=== PATIENT | female | born 1935 | race Caucasian/White ===

== ENCOUNTER 2019-03-15 11:39 | Emergency (ER) | payer MEDICARE, OTHER ==
[~2019-03-15] VITALS: Ht 149.9 cm; Wt 61.5 kg
[2019-03-15] MEDS ORDERED: LISI10TA4 PO (12:39)
[2019-03-15] MEDS ORDERED: DONE10TA90 PO (12:39)
[2019-03-15] MEDS ORDERED: METO1TAB33 PO (12:39)
[2019-03-15 12:42] LABS: BASO # 0.1 10^3/uL (0.0-0.2); BASO % 0.6 % (0.0-1.0); EOS # 0.1 10^3/uL (0.0-0.50); EOS % 1.2 % (0.0-3.0); HEMATOCRIT 35.2 % (36.0-47.0); HEMOGLOBIN 11.6 g/dl (12.0-15.5); LYMPH # 1.8 10^3/uL (1.5-4.5); LYMPH % 16.3 % (24.0-44.0); MEAN CORPUSCULAR HEMOGLOBIN 32.2 pg (27.0-33.0); MEAN CORPUSCULAR VOLUME 97.8 fl (80.0-96.0); MONO # 1.3 10^3/uL (0.0-0.8); MONO % 11.6 % (0.0-5.0); NEUTROPHILS # 7.5 10^3/uL (1.8-7.7); NEUTROPHILS % 69.6 % (36.0-66.0); PLATELET COUNT, AUTOMATED 257 10^3/uL (150-450); WHITE BLOOD COUNT 10.8 10^3/uL (4.0-10.0)
[2019-03-15 13:08] LABS: ALBUMIN 2.9 GM/DL (3.2-5.2); BILIRUBIN,DIRECT 0.1 MG/DL (0.0-0.2); BILIRUBIN,TOTAL 0.5 MG/DL (0.2-1.0); TOTAL PROTEIN 7.6 GM/DL (6.4-8.2)
[2019-03-15] MEDS ORDERED: ISOVUE-370 76% 100ML VIAL (Q9967) As Ordered ONE (13:11)
[2019-03-15 14:35] LABS: INR 1.13; PARTIAL THROMBOPLASTIN TIME 31.5 SECONDS (25.4-37.6); PROTHROMBIN TIME 14.7 SECONDS (12.1-14.4)
--- NOTE | 2019-03-15 15:39 | REP ---
CT ABDOMEN AND PELVIS WITH IV CONTRAST: TECHNIQUE: Axial contrast enhanced images from the lung bases to the pubic symphysis using 100 mL Isovue 370 intravenous contrast material with multiplanar reformations. Visualized lung bases demonstrate fibrotic changes. There is a small hiatal hernia. No abnormality is seen in the liver. In the region of the neck of the gallbladder there is a 7 mm stone. There is no gallbladder wall thickening. Spleen, adrenals, and pancreas appear unremarkable. Kidneys appear unremarkable. There is no hydronephrosis. There is atherosclerotic calcification of the abdominal aorta without aneurysm. There is on adenopathy. There is no free air or free fluid. Scattered diverticula are seen of the colon. There may be some mild pericolonic inflammation in the region of the sigmoid colon, possibly indicating mild sigmoid diverticulitis. There is no free air or free fluid. There is no evidence of appendicitis. The uterus is enlarged and has an abnormal appearance with diffuse heterogeneous internal enhancement. Findings likely represent endometrial carcinoma. IMPRESSION: Small hiatal hernia. 7 mm gallstone in the gallbladder without evidence of gallbladder wall thickening or free fluid. Possible mild sigmoid diverticulitis. Abnormal appearance of the uterus with diffuse heterogeneous internal enhancement suggesting endometrial carcinoma. Electronically Signed by Edy Cee MD 03/17/2019 08:40 A
[2019-03-15 16:32] VITALS: BP 140/74
[2019-03-15] MEDS ORDERED: METR-265 PO (16:50)
[2019-03-15] MEDS ORDERED: CIPR500T3 PO (16:50)
--- NOTE | 2019-03-16 07:44 | ECGEPIP ---
[facility] - ED Test Date: 2019-03-15 Pat Name: TIESHA GOODMAN Department: Room: - Gender: Female Ethics Manager: TC : [id number] Requested By: Yuko Salinas Order Number: [id number] Reading MD: Yuko Salinas Measurements Intervals [place] Rate: 57 P: 36 MO: 167 QRS: QRSD: 94 T: 4 QT: 471 QTc: 460 Interpretive Statements SINUS BRADYCARDIA MODERATE VOLTAGE CRITERIA FOR LVH, CONSIDER NORMAL VARIANT baseline artifact may affect interpretation NSTTW abnormalities NO PRIOR FOR COMPARISON Electronically Signed on 03-16-2019 7:44:29 EDT by Yuko Salinas
--- NOTE | 2019-03-28 12:14 | ED PDOC ---
Post-Departure Follow-Up dr jimenez, dr pena faxed formal report of ct abd/p for fu Ernie Lopez MD Mar 28, 2019 12:14
== END 2019-03-15 16:59 | disposition home or self-care (01) ==
LOC: M ED 11:39
DX: N93.9 Abnormal uterine and vaginal bleeding, unspecified (principal); D25.9 Leiomyoma of uterus, unspecified; K57.32 Diverticulitis of large intestine without perforation or abscess without bleeding; R00.1 Bradycardia, unspecified; M54.5 Low back pain; I10 Essential (primary) hypertension; F03.90 Unspecified dementia, unspecified severity, without behavioral disturbance, psychotic disturbance, mood disturbance, and anxiety; Z79.899 Other long term (current) drug therapy
CPT/HCPCS: 36415; 74177; 80047; 80076; 83690; 85025; 85610; 85730; 88307; 93005; 93041; 99285; Q9967

== ENCOUNTER 2019-06-30 05:57 | Day surgery (SDC) | payer MEDICARE, OTHER ==
[~2019-06-30] VITALS: Ht 148.6 cm; Wt 50.5 kg
[~2019-06-30 05:57] MED LIST: CIPR500T3 PO; DONE10TA90 PO; FISH1000 PO; GABA-843 PO; IBUP-1022 PO; LISI10TA4 PO; METO1TAB33 PO; METO1TAB7 PO; METO25TA4 PO; METR-265 PO; MULTCAP PO; TRAM50TA2 PO
[2019-06-30] MEDS ORDERED: LR 1,000 ML IV ONE (06:00)
[2019-06-30] MEDS ORDERED: propofoL 200 MG/20 ML VIAL As Ordered ONE (06:55)
[2019-06-30] MEDS ORDERED: LIDOCAINE 2% INJ 100 MG/5 ML SDV (FOR ANES.) As Ordered ONE (06:55)
[2019-06-30] MEDS ORDERED: dexameTHASONE 4 MG/ML 1ML VIAL (J1100) As Ordered ONE (06:55)
[2019-06-30] MEDS ORDERED: ONDANSETRON 4MG/2ML VIAL (J2405) As Ordered ONE (06:55)
[2019-06-30] MEDS ORDERED: KETOROLAC 60 MG/2 ML VIAL (J1885) As Ordered ONE (06:55)
[2019-06-30] MEDS ORDERED: MIDAZOLAM INJ 2 MG/2 ML VIAL (J2250) As Ordered ONE (06:56)
[2019-06-30] MEDS ORDERED: fentaNYL 100 MCG/2 ML INJECTION (J3010) As Ordered ONE (06:56)
[2019-06-30] MEDS ORDERED: PHENYLephrine HCL 500 MCG/5 ML (100MCG/ML) SYRINGE (J2370) As Ordered ONE (07:41)
[2019-06-30] MEDS ORDERED: ePHEDrine SULFATE 25 MG/5 ML(5MG/ML) SYRINGE As Ordered ONE ×2 (07:41→07:51)
[2019-06-30] MEDS ORDERED: ACETAMINOPHEN 1000MG 100ML IV BTL (OFIRMEV) (J0131 PER 10MG) As Ordered ONE (08:32)
[2019-06-30] MEDS ORDERED: oxyCODONE 5MG TAB PO PRN (09:15)
[2019-06-30] MEDS ORDERED: IBUPROFEN 600 MG TAB PO PRN (09:15)
[2019-06-30] MEDS ORDERED: LR 1,000 ML IV SCH (09:15)
[2019-06-30] MEDS ORDERED: ONDANSETRON 4MG/2ML VIAL (J2405) IV PRN (09:15)
[2019-06-30] MEDS ORDERED: fentaNYL 100 MCG/2 ML INJECTION (J3010) IV PRN (09:15)
[2019-06-30 11:20] VITALS: BP 112/59
--- NOTE | 2019-06-30 14:36 | RO ---
DATE OF PROCEDURE: 06/30/2019 PREOPERATIVE DIAGNOSIS/INDICATION FOR SURGERY: Postmenopausal bleeding with abnormal sonogram. POSTOPERATIVE DIAGNOSIS: Multiple polyps or fibroids within the uterus. PROCEDURE: Dilatation and curettage, hysteroscopy with MyoSure resection of lesions. SURGEON: Madhavi Woodard MD BLEACHER KRAFT PULP: None. ANESTHESIA: Laryngeal mask airway (LMA). BRIEF DESCRIPTION OF PROCEDURE AND FINDINGS: Sussy was brought to the operating room where sufficient LMA anesthesia was induced and she was prepped, draped and positioned in the usual sterile fashion with the bladder emptied. She has a caruncle. This is not a change. She has marked vaginal atrophy, also not a change. The cervix was grasped with single tooth tenaculum and only moderately mobile even under anesthesia, but as expected the fibroid that had been removed in the office and had been sitting within the cervix did leave the cervix still somewhat open, so we tested with a dilator and could tell that we were already more than open enough for the dilation to place the hysteroscope. The XCEL MyoSure hysteroscope was placed and there was free flow of fluid back out around it, so we lost quite a bit of fluid that way, a lot of it not going back in the bag, because it was leaking right back out the vagina. Nevertheless, despite this loss of fluid and leakage in that regard, we had a good view. We were able to see multiple endometrial polypoid lesions. These are either fibroids or endometrial polyps, very much like a bag full of marbles, a number of them. I was not able to get a decent count because of the crowding and the large number of them, but we were able to use the XCEL MyoSure resector to resect many of them. We were also able to use the curette to resect many of them, so using both the MyoSure and curettage we removed a considerable amount of the patient's lesions. She had had a benign fibroid in the office and was very much bothered by the bleeding as were her family because she is sufficiently confused that the bleeding becomes a marked hygiene issue for her and her household. So we really tried to do our best to get as much of the lesions as possible in the hope that we would stop this, especially if it turns out that these lesions are also benign as the other one that was sampled was. So after considerable MyoSure resection and curettage the procedure was then ended. We did massage the uterus to try to help bring it back down after removal of all of those lesions. The procedure was ended. Actual blood loss was really probably only around 5 mL. FLUID REPLACEMENT: Crystalloid. COMPLICATIONS: None. CONDITION AND DISPOSITION: Sussy tolerated the procedure well and was recovering in the recovery room in good condition.
== END 2019-06-30 12:02 | disposition home or self-care (01) ==
LOC: M SDC 05:57
PROVIDERS: ATTEND Obstetrics & Gynecology
DX: C54.1 Malignant neoplasm of endometrium (principal)

== ENCOUNTER 2019-07-03 20:22 | Inpatient (IN) | payer MEDICARE, OTHER ==
[~2019-07-03] VITALS: Ht 152.4 cm; Wt 54.9 kg
[2019-07-03 21:07] LABS: BASO # 0.1 10^3/uL (0.0-0.2); BASO % 0.4 % (0.0-1.0); EOS # 0.2 10^3/uL (0.0-0.5); EOS % 1.2 % (0.0-3.0); HEMATOCRIT 28.9 % (36.0-47.0); HEMOGLOBIN 9.5 g/dl (12.0-15.5); LYMPH # 1.6 10^3/uL (1.5-5.0); MEAN CORPUSCULAR HEMOGLOBIN 30.4 pg (27.0-33.0); MEAN CORPUSCULAR HGB CONC 32.9 g/dl (32.0-36.5); MEAN CORPUSCULAR VOLUME 92.3 fl (80.0-96.0); MONO # 1.1 10^3/uL (0.0-0.8); MONO % 7.8 % (0.0-5.0); NEUTROPHILS # 11.4 10^3/uL (1.5-8.5); NEUTROPHILS % 78.7 % (36.0-66.0); PLATELET COUNT, AUTOMATED 329 10^3/uL (150-450); RED BLOOD COUNT 3.13 10^6/uL (4.00-5.40); WHITE BLOOD COUNT 14.4 10^3/uL (4.0-10.0)
[2019-07-03] MEDS ORDERED: NS 1,000 ML IV ONE (21:15)
[2019-07-03 21:26] LABS: ALBUMIN 2.7 GM/DL (3.2-5.2); ALT/SGPT 13 U/L (12-78); BILIRUBIN,TOTAL 0.4 MG/DL (0.2-1.0); BLOOD UREA NITROGEN 22 MG/DL (7-18); CALCIUM LEVEL 8.7 MG/DL (8.8-10.2); CARBON DIOXIDE LEVEL 24 MEQ/L (21-32); CHLORIDE LEVEL 105 MEQ/L (98-107); CREATININE FOR GFR 0.92 MG/DL (0.55-1.30); GLOMERULAR FILTRATION RATE > 60.0 (>32); GLUCOSE, FASTING 90 MG/DL (70-100); POTASSIUM SERUM 4.2 MEQ/L (3.5-5.1); SODIUM LEVEL 137 MEQ/L (136-145)
[2019-07-03] MEDS ORDERED: ISOVUE-370 76% 100ML VIAL (Q9967) As Ordered ONE (21:32)
--- NOTE | 2019-07-03 22:23 | REPVR ---
PROCEDURE INFORMATION: Exam: CT Abdomen and Pelvis With Contrast Exam date and time: 07/03/2019 9:49 PM Clinical history: 84 years old, female; Abdominal pain; Generalized; Prior surgery; Surgery date: Post-operative (0-2 days); Surgery type: S/P d&c; Patient HX: HX diverticulitis; Additional info: Pain, S/P d TECHNIQUE: Imaging protocol: Computed tomography of the abdomen and pelvis with intravenous contrast. Radiation optimization: All CT scans at this facility use at least one of these dose optimization techniques: automated exposure control; mA and/or kV adjustment per patient size (includes targeted exams where dose is matched to clinical indication); or iterative reconstruction. Contrast material: ISOVUE 370; Contrast volume: 100 ml; Contrast route: IV; COMPARISON: CT ABD/PEL W/IV CONTRAST ONLY 03/15/2019 2:23 PM FINDINGS: Lungs: Bibasilar atelectasis. Liver: There is a diffuse decrease in hepatic parenchymal density, consistent with fatty infiltration. Gallbladder and bile ducts: There are gallstones present. No evidence of cholecystitis demonstrated. Pancreas: Normal. No ductal dilation. Spleen: Normal. No splenomegaly. Adrenals: Normal. No mass. Kidneys and ureters: Normal. No hydronephrosis. Stomach and bowel: Unremarkable. No obstruction. No mucosal thickening. Appendix: No evidence of appendicitis. Intraperitoneal space: There is a segment of acute inflammation in the proximal sigmoid colon and adjacent pericolonic fat without evidence of a drainable abscess or free air, consistent with acute diverticulitis. Vasculature: The aorta demonstrates moderate atherosclerotic calcification. Lymph nodes: Unremarkable. No enlarged lymph nodes. Bladder: Unremarkable as visualized. Reproductive: Gross widening of the endometrial cavity filled with fluid measures 3.5 cm in maximum width with a small locule of air and high density material demonstrated within the fluid as well, findings consistent with recent D&C. Infection to be excluded clinically. Bones/joints: Mild central spinal stenosis L3-4 and mild to moderate central spinal stenosis L4-5. Facet joint arthropathy L5-S1. Soft tissues: Unremarkable. IMPRESSION: 1. Abnormally widened endometrial cavity filled with fluid and gas locules and probable hemorrhagic products. Findings consistent with recent surgery clinical correlation to exclude infection suggested. Residual tumor not excluded. 2. There is a diffuse decrease in hepatic parenchymal density, consistent with fatty infiltration. 3. There are gallstones present. No evidence of cholecystitis demonstrated. 4. There is a segment of acute inflammation in the proximal sigmoid colon and adjacent pericolonic fat without evidence of a drainable abscess or free air, consistent with acute diverticulitis. Electronically signed by: Burton Serrano On 07/03/2019 22:23:32 PM
[2019-07-03] MEDS ORDERED: KETOROLAC 30 MG/ML VIAL (J1885) IV ONE (22:45)
[2019-07-03] MEDS ORDERED: FISH1000 PO (23:20)
[2019-07-03] MEDS ORDERED: LISI10TA4 PO (23:20)
[2019-07-03] MEDS ORDERED: CIPROFLOXACIN 400 MG in IV 1 EA IV ONE (23:30)
[2019-07-03] MEDS ORDERED: metroNIDAZOLE 500 MG in IV 1 EA IV ONE (23:30)
[2019-07-03] MEDS ORDERED: MOM 30ML SUSPENSION UDC PO PRN (23:45)
[2019-07-03] MEDS ORDERED: MAALOX 30 ML SUSP *UDC PO PRN (23:45)
[2019-07-03] MEDS ORDERED: cefTRIAXone SOD 1 GM in D5W MINI-BAG PLUS 50 ML IV ONE (23:45)
--- NOTE | 2019-07-04 | HPEPDOC ---
General Date of Admission Date of Service: Jul 03, 2019 Chief Complaint The patient is a 84-year-old female admitted with a reason for visit of Weakness. Source: Patient, RN/MD Exam Limitations: No limitations Timing/Duration: Day(s) Severity: Mild History of Present Illness Ms. Ni is an 84 years old woman with dementia who is oriented to place only. She did not know why she was in the hospital and denied any symptoms at all when I asked her. No family member available. Info obtained from ER MD. The patient was brought to ER for evaluation of left lower abdominal pain, nausea, vomiting and generalized weakness. Not sure if pt had diarrhea. CT abd shows proximal sigmoid diverticulitis, along with findings of recent D&C such as distended uterus and intra-uterine fluid and mass. Small amount of blood was noted in vaginal vault on ED MD examination. Hb is 9.5 whihc is a change from 11.6 on 03/15/19. Vitals are normal; pt is afebrile. Pt appears pain free. She had received Toradol in the ER. Home Medications Scheduled Donepezil HCl (Donepezil HCl) 10 Mg Tablet, 10 MG PO DAILY, (Reported) Gabapentin (Gabapentin) 300 Mg Capsule, 300 MG PO QPM, (Reported) Metoprolol Tartrate (Metoprolol Tartrate) 25 Mg Tablet, 25 MG PO BID, (Reported) Coral-3 Fatty Acids/Fish Oil (Fish Oil 1,000 mg Capsule) 1 Each Capsule, 1,000 MG PO DAILY, (Reported) Scheduled PRN Ibuprofen (Ibuprofen) 600 Mg Tablet, 600 MG PO Q6H PRN for PAIN, (Reported) Tramadol HCl (Tramadol HCl) 50 Mg Tablet, 50 MG PO BID PRN for pain, (Reported) Allergies Coded Allergies: No Known Allergies (Unverified , 07/03/19) Past Medical History Medical History Dementia, Uterine fibroid and bleeding Surgical History D&C on 07/01/19 Family History Significant Family History: Other (none reported) Social History * Smoker: other (unknown) Alcohol: other (unknown) Drugs: other (unknown) A-FIB/CHADSVASC A-FIB History Current/History of A-Fib/PAF?: No Review of Systems Other systems Unable to reliably review systems due to dementia. Pt denies any symptoms when asked. From the record we know that pt has been having chronic uterine bleeding and has dementia. Physical Examination General Exam: Positive: Alert, Cooperative, No Acute Distress Eye Exam: Positive: PERRLA, Conjunctiva & lids normal ENT Exam: Positive: Atraumatic Neck Exam: Positive: Supple; Negative: JVD Chest Exam: Positive: Clear to auscultation, Normal air movement Heart Exam: Positive: Rate Normal, Normal S1, Normal S2; Negative: Murmurs Abdomen Exam: Positive: BS Hyperactive, Soft, Tenderness Extremity Exam: Positive: Normal pulses; Negative: Edema Skin Exam: Positive: Nl turgor and temperature; Negative: Rash, Breakdown Neuro Exam: Positive: Normal Speech, Strength at 5/5 X4 ext, Normal Tone Psych Exam: Positive: Mood NL, Other (oriented to palce only); Negative: Anxiety Vital Signs Vital Signs Date Time Temp Pulse Resp B/P (MAP) Pulse Ox O2 Delivery O2 Flow Rate FiO2 07/03/19 23:11 83 16 143/63 (89) 100 Room Air 07/03/19 20:22 97.1 Laboratory Data Labs 24H Laboratory Tests 2 07/03/19 20:45: Immature Granulocyte % (Auto) 0.9, White Blood Count 14.4H, Red Blood Count 3.13L, Hemoglobin 9.5L, Hematocrit 28.9L, Mean Corpuscular Volume 92.3, Mean Corpuscular Hemoglobin 30.4, Mean Corpuscular Hemoglobin Concent 32.9, Red Cell Distribution Width 14.2, Platelet Count 329, Neutrophils (%) (Auto) 78.7H, Lymphocytes (%) (Auto) 11.0L, Monocytes (%) (Auto) 7.8H, Eosinophils (%) (Auto) 1.2, Basophils (%) (Auto) 0.4, Neutrophils # (Auto) 11.4H, Lymphocytes # (Auto) 1.6, Monocytes # (Auto) 1.1H, Eosinophils # (Auto) 0.2, Basophils # (Auto) 0.1, Nucleated Red Blood Cells % (auto) 0.0, Anion Gap 8, Glomerular Filtration Rate > 60.0, Blood Urea Nitrogen 22H, Creatinine 0.92, Sodium Level 137, Potassium Level 4.2, Chloride Level 105, Carbon Dioxide Level 24, Calcium Level 8.7L, Aspartate Amino Transf (AST/SGOT) 14, Alanine Aminotransferase (ALT/SGPT) 13, Alkaline Phosphatase 81, Total Bilirubin 0.4, Total Protein 7.0, Albumin 2.7L, Albumin/Globulin Ratio 0.63L CBC/BMP Laboratory Tests 07/03/19 20:45 Red Blood Count 3.13 L, Mean Corpuscular Volume 92.3, Mean Corpuscular Hemoglobin 30.4, Mean Corpuscular Hemoglobin Concent 32.9, Red Cell Distribution Width 14.2, Neutrophils (%) (Auto) 78.7 H, Lymphocytes (%) (Auto) 11.0 L, Monocytes (%) (Auto) 7.8 H, Eosinophils (%) (Auto) 1.2, Basophils (%) (Auto) 0.4, Neutrophils # (Auto) 11.4 H, Lymphocytes # (Auto) 1.6, Monocytes # (Auto) 1.1 H, Eosinophils # (Auto) 0.2, Basophils # (Auto) 0.1, Calcium Level 8.7 L, Aspartate Amino Transf (AST/SGOT) 14, Alanine Aminotransferase (ALT/SGPT) 13, Alkaline Phosphatase 81, Total Bilirubin 0.4, Total Protein 7.0, Albumin 2.7 L Assessment/Plan Acute Sigmoid Diverticulitis - Admit to inpatient - Clear liquid diet, IV fluid, Pain management, anti-emetic - IV Rocephin - GI panel - Not sure if this has any relation to intraabdominal manipulation from D&C two days ago. Acute and Chronic Blood Loss Anemia due Uterine bleeding, Multiple Uterine Polyps - Monitor - Electric Serviceman Contacted by ED: no indication of any post-op complication Dementia - Supportive care; home med Plan / VTE VTE Prophylaxis Ordered?: Yes Plan IVF: Initiate Diet: Continue Current Activity: Continue Current Diagnostics: Repeat Labs in AM Anticipated Discharge: Home MARY BETH WRIGHT MD Jul 04, 2019 00:00
[2019-07-04] MEDS ORDERED: MORPHINE 4 MG/ML 1ML VIAL/SYRINGE (J2270) IV PRN (00:15)
[2019-07-04 00:40] VITALS: BP 117/60
[2019-07-04] MEDS: NS 1,000 ML IV SCH ×2 (00:42→12:55)
[2019-07-04 06:00] VITALS: BP 118/61
[2019-07-04 06:31] LABS: HEMATOCRIT 24.5 % (36.0-47.0); HEMOGLOBIN 8.1 g/dl (12.0-15.5); MEAN CORPUSCULAR HEMOGLOBIN 30.5 pg (27.0-33.0); MEAN CORPUSCULAR HGB CONC 33.1 g/dl (32.0-36.5); MEAN CORPUSCULAR VOLUME 92.1 fl (80.0-96.0); PLATELET COUNT, AUTOMATED 274 10^3/uL (150-450); RED BLOOD COUNT 2.66 10^6/uL (4.00-5.40); WHITE BLOOD COUNT 10.4 10^3/uL (4.0-10.0)
[2019-07-04 06:51] LABS: BLOOD UREA NITROGEN 18 MG/DL (7-18); CALCIUM LEVEL 8.6 MG/DL (8.8-10.2); CARBON DIOXIDE LEVEL 22 MEQ/L (21-32); CHLORIDE LEVEL 111 MEQ/L (98-107); CREATININE FOR GFR 0.74 MG/DL (0.55-1.30); GLOMERULAR FILTRATION RATE > 60.0 (>32); GLUCOSE, FASTING 73 MG/DL (70-100); MAGNESIUM LEVEL 1.4 MG/DL (1.8-2.4); POTASSIUM SERUM 3.7 MEQ/L (3.5-5.1); SODIUM LEVEL 141 MEQ/L (136-145)
[2019-07-04] MEDS ORDERED: POTASSIUM CHLORIDE 10 MEQ SR TABLET PO ONE ×2 (09:00→19:00)
[2019-07-04] MEDS ORDERED: ENOXAPARIN 30 MG/0.3 ML SYR (J1650) SC SCH (09:00)
[2019-07-04 10:00] VITALS: BP_SYST 128; BP_SYST 154; BP_DIAS 72; BP_DIAS 86
[2019-07-04] MEDS: ACETAMINOPHEN TAB 650MG DOSE (2X325MG) PO PRN ×2 (13:11→13:30)
[2019-07-04] MEDS ORDERED: PILL CUTTER 1 EACH XX PRN (13:30)
[2019-07-04 14:00] VITALS: BP 123/82
[2019-07-04 14:13] LABS: HEMATOCRIT 30.5 % (36.0-47.0); HEMOGLOBIN 9.5 g/dl (12.0-15.5)
[2019-07-04 18:00] VITALS: BP 128/62
[2019-07-04 18:12] LABS: HEMATOCRIT 26.3 % (36.0-47.0); HEMOGLOBIN 8.6 g/dl (12.0-15.5)
--- NOTE | 2019-07-04 19:11 | IPNPDOC ---
Text Note Date of Service The patient was seen on 07/04/19. NOTE Subjective: Patient stated that she feels better today, denies any abdominal pain. Patient was noticed to have some small amount of red blood from vagina. Objective: General - NAD, sitting up in bed, well groomed Eyes - PERRLA, EOM intact Neck - No noticeable or palpable swelling, redness or rash around throat or on face Lymph Nodes - No lymphadenopathy Cardiovascular - RRR no m/r/g, no JVD, no carotid bruits Lungs - Clear to auscultation, no use of accessory muscles, no crackles or wheezes. Skin - No rashes, skin warm and dry, no erythematous areas Abdomen - Normal bowel sounds, abdomen soft and nontender Extremities - No edema, cyanosis or clubbing Musculo Skeletal - 5/5 strength, normal range of motion, no swollen or erythematous joints. Neurological Alert and oriented x 3, CN 2-12 grossly intact Assessment and plan Patient is 84 years old female with past medical history of dementia presented hospital with left lower abdominal pain and vomiting and generalized weakness. Imaging studies showed proximal sigmoid diverticulitis. Acute Sigmoid Diverticulitis -Full liquid diet today, IV fluid, Pain management, anti-emetic - I changed IV antibiotics Augmentin by mouth for next 10 days Acute and Chronic Blood Loss Anemia due Uterine bleeding, Multiple Uterine Polyps H&H every 6 hours Will transfuse if hemoglobin drops less than 7 Dementia - Supportive care; home med VS,Fishbone, I+O VS, Fishbone, I+O Laboratory Tests 07/03/19 20:45 Red Blood Count 3.13 L, Mean Corpuscular Volume 92.3, Mean Corpuscular Hemoglobin 30.4, Mean Corpuscular Hemoglobin Concent 32.9, Red Cell Distribution Width 14.2, Neutrophils (%) (Auto) 78.7 H, Lymphocytes (%) (Auto) 11.0 L, Monocytes (%) (Auto) 7.8 H, Eosinophils (%) (Auto) 1.2, Basophils (%) (Auto) 0.4, Neutrophils # (Auto) 11.4 H, Lymphocytes # (Auto) 1.6, Monocytes # (Auto) 1.1 H, Eosinophils # (Auto) 0.2, Basophils # (Auto) 0.1, Calcium Level 8.7 L, Aspartate Amino Transf (AST/SGOT) 14, Alanine Aminotransferase (ALT/SGPT) 13, Alkaline Phosphatase 81, Total Bilirubin 0.4, Total Protein 7.0, Albumin 2.7 L 07/04/19 06:04 Red Blood Count 2.66 L, Mean Corpuscular Volume 92.1, Mean Corpuscular Hemoglobin 30.5, Mean Corpuscular Hemoglobin Concent 33.1, Red Cell Distribution Width 14.4, Calcium Level 8.6 L 07/04/19 12:16 07/04/19 17:54 Vital Signs Date Time Temp Pulse Resp B/P (MAP) Pulse Ox O2 Delivery O2 Flow Rate FiO2 07/04/19 18:00 97.4 65 16 128/62 (84) 100 07/04/19 00:26 Room Air I&O- Last 24 Hours up to 6 AM 07/04/19 06:00 Intake Total 1375 ml Output Total 0 ml Balance 1375 ml BRAYDON GOMEZ DO Jul 04, 2019 19:11
[2019-07-04] MEDS: AUGMENTIN 875 MG TAB PO SCH (20:14)
[2019-07-04 22:00] VITALS: BP 122/58
[2019-07-04] MEDS ORDERED: cefTRIAXone SOD 1 GM in D5W MINI-BAG PLUS 50 ML IV SCH (22:00)
[2019-07-05] MEDS: NS 1,000 ML IV SCH ×2 (01:15→16:14)
[2019-07-05 02:00] VITALS: BP 144/63
[2019-07-05 06:00] VITALS: BP 134/74
[2019-07-05 06:18] LABS: MEAN CORPUSCULAR HEMOGLOBIN 30.1 pg (27.0-33.0); MEAN CORPUSCULAR HGB CONC 33.3 g/dl (32.0-36.5); MEAN CORPUSCULAR VOLUME 90.2 fl (80.0-96.0); PLATELET COUNT, AUTOMATED 298 10^3/uL (150-450); RED BLOOD COUNT 2.66 10^6/uL (4.00-5.40); WHITE BLOOD COUNT 8.7 10^3/uL (4.0-10.0)
[2019-07-05 06:38] LABS: BLOOD UREA NITROGEN 10 MG/DL (7-18); CALCIUM LEVEL 8.2 MG/DL (8.8-10.2); CARBON DIOXIDE LEVEL 20 MEQ/L (21-32); CHLORIDE LEVEL 117 MEQ/L (98-107); CREATININE FOR GFR 0.71 MG/DL (0.55-1.30); GLOMERULAR FILTRATION RATE > 60.0 (>32); GLUCOSE, FASTING 77 MG/DL (70-100); POTASSIUM SERUM 3.9 MEQ/L (3.5-5.1); SODIUM LEVEL 145 MEQ/L (136-145)
[2019-07-05] MEDS: ACETAMINOPHEN TAB 650MG DOSE (2X325MG) PO PRN ×2 (09:27→20:03)
[2019-07-05] MEDS: ONDANSETRON 4MG/2ML VIAL (J2405) IV PRN (09:27)
[2019-07-05] MEDS: MAGNESIUM CHLORIDE 64 MG TABCR (SLO MAG) PO SCH (09:27)
[2019-07-05] MEDS: AUGMENTIN 875 MG TAB PO SCH ×2 (09:27→20:02)
[2019-07-05 10:00] VITALS: BP 146/72
[2019-07-05 10:47] LABS: MAGNESIUM LEVEL 1.3 MG/DL (1.8-2.4)
[2019-07-05] MEDS ORDERED: MAG SULF 1GM/100ML (MAG RUN) 1 GM in IV 1 EA IV ONE (12:00)
[2019-07-05 14:00] VITALS: BP 134/64
--- NOTE | 2019-07-05 15:59 | IPNPDOC ---
Text Note Date of Service The patient was seen on 07/05/19. NOTE NOTE Subjective: Patient is anxious today, reluctant to take by mouth meds. She continues to have small amount of vaginal bleed Objective: General - NAD, sitting up in bed, pale Eyes - PERRLA, EOM intact Neck - No noticeable or palpable swelling, redness or rash around throat or on face Lymph Nodes - No lymphadenopathy Cardiovascular - RRR no m/r/g, no JVD, no carotid bruits Lungs - Clear to auscultation, no use of accessory muscles, no crackles or wheezes. Skin - No rashes, skin warm and dry, no erythematous areas Abdomen - Normal bowel sounds, abdomen soft and nontender Extremities - No edema, cyanosis or clubbing Musculo Skeletal - 5/5 strength, normal range of motion, no swollen or erythematous joints. Neurological Alert and oriented x 3, CN 2-12 grossly intact Assessment and plan Patient is 84 years old female with past medical history of dementia presented hospital with left lower abdominal pain and vomiting and generalized weakness. Imaging studies showed proximal sigmoid diverticulitis. Also patient was found to have interventional bleed s/p D&C on June 30. Biopsy result positive for leiomyosarcoma Acute Sigmoid Diverticulitis -Full liquid diet, IV fluid, Pain management, anti-emetic -Augmentin by mouth Acute and Chronic Blood Loss Anemia due Uterine bleeding, Multiple Uterine Polyps Hemoglobin dropped to 8. I talked to Dr. Woodard who did D&C on June 30. She told me she received report from biopsy positive for leiomyosarcoma. She recommended consult from oncologist/mercerizing range feeder. If pt continues to bleed she can be transferred to [facility]& every 6 hours Will transfuse if hemoglobin drops less than 7 Dementia - Supportive care; home med Electrolyte abnormalities magnesium replaced VS,Fishbone, I+O VS, Fishbone, I+O Laboratory Tests 07/04/19 17:54 07/05/19 05:45 Red Blood Count 2.66 L, Mean Corpuscular Volume 90.2, Mean Corpuscular Hemoglobin 30.1, Mean Corpuscular Hemoglobin Concent 33.3, Red Cell Distribution Width 14.3, Calcium Level 8.2 L Vital Signs Date Time Temp Pulse Resp B/P (MAP) Pulse Ox O2 Delivery O2 Flow Rate FiO2 07/05/19 14:00 98.0 87 24 134/64 (87) 100 07/04/19 00:26 Room Air I&O- Last 24 Hours up to 6 AM 07/05/19 06:00 Intake Total 1745 ml Output Total 300 ml Balance 1445 ml BRAYDON GOMEZ DO Jul 05, 2019 15:59
[2019-07-05] MEDS ORDERED: MAG SULF 1GM/100ML (MAG RUN) 1 GM in IV 1 EA IV SCH (16:00)
[2019-07-05 18:00] VITALS: BP 156/88
[2019-07-05 22:00] VITALS: BP 136/67
[2019-07-06 06:00] VITALS: BP 152/90
[2019-07-06] MEDS: NS 1,000 ML IV SCH ×2 (09:07→18:46)
[2019-07-06] MEDS: AUGMENTIN 875 MG TAB PO SCH ×2 (09:07→21:35)
[2019-07-06] MEDS: MAGNESIUM CHLORIDE 64 MG TABCR (SLO MAG) PO SCH (09:08)
[2019-07-06 09:48] LABS: HEMATOCRIT 25.9 % (36.0-47.0); HEMOGLOBIN 8.4 g/dl (12.0-15.5); MEAN CORPUSCULAR HEMOGLOBIN 30.2 pg (27.0-33.0); MEAN CORPUSCULAR HGB CONC 32.4 g/dl (32.0-36.5); MEAN CORPUSCULAR VOLUME 93.2 fl (80.0-96.0); PLATELET COUNT, AUTOMATED 309 10^3/uL (150-450); RED BLOOD COUNT 2.78 10^6/uL (4.00-5.40); WHITE BLOOD COUNT 10.4 10^3/uL (4.0-10.0)
[2019-07-06 10:16] LABS: BLOOD UREA NITROGEN 7 MG/DL (7-18); CALCIUM LEVEL 8.1 MG/DL (8.8-10.2); CARBON DIOXIDE LEVEL 20 MEQ/L (21-32); CHLORIDE LEVEL 118 MEQ/L (98-107); CREATININE FOR GFR 0.67 MG/DL (0.55-1.30); GLOMERULAR FILTRATION RATE > 60.0 (>32); GLUCOSE, FASTING 92 MG/DL (70-100); MAGNESIUM LEVEL 1.7 MG/DL (1.8-2.4); POTASSIUM SERUM 3.1 MEQ/L (3.5-5.1); SODIUM LEVEL 146 MEQ/L (136-145)
[2019-07-06 14:00] VITALS: BP 156/74
--- NOTE | 2019-07-06 15:52 | IPNPDOC ---
Text Note Date of Service The patient was seen on 07/06/19. NOTE Subjective: Patient is more alert today, communicative. Patient rejected IV b lood test in the morning. Patient denies any pain in her abdomen, fever chills, nausea, vomiting, shortness of breath or palpitations. Objective: General - NAD, sitting up in bed Eyes - PERRLA, EOM intact Neck - No noticeable or palpable swelling, redness or rash around throat or on face Lymph Nodes - No lymphadenopathy Cardiovascular - RRR no m/r/g, no JVD, no carotid bruits Lungs - Clear to auscultation, no use of accessory muscles, no crackles or wheezes. Skin - No rashes, skin warm and dry, no erythematous areas Abdomen - Normal bowel sounds, abdomen soft and nontender Extremities - No edema, cyanosis or clubbing Musculo Skeletal - 5/5 strength, normal range of motion, no swollen or erythematous joints. Neurological Alert and oriented x 3, CN 2-12 grossly intact Assessment and plan Patient is 84 years old female with past medical history of dementia presented hospital with left lower abdominal pain and vomiting and generalized weakness. Imaging studies showed proximal sigmoid diverticulitis. Also patient was found to have interventional bleed s/p D&C on June 30. 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 I talked to Dr. Woodard who did D&C on June 30. She told me she received report from biopsy positive for leiomyosarcoma. She recommended consult from oncologist/hospice fellow. If pt continues to bleed she can be transferred to [facility]. If patient stable she can be discharged to long term and then transferred to [facility]. H&H every 6 hours Will transfuse if hemoglobin drops less than 7 Dementia - Supportive care; home med Electrolyte abnormalities magnesium replaced VS,Fishbone, I+O VS, Fishbone, I+O Laboratory Tests 07/06/19 09:37 Red Blood Count 2.78 L, Mean Corpuscular Volume 93.2, Mean Corpuscular Hemoglobin 30.2, Mean Corpuscular Hemoglobin Concent 32.4, Red Cell Distribution Width 14.3, Calcium Level 8.1 L Vital Signs Date Time Temp Pulse Resp B/P (MAP) Pulse Ox O2 Delivery O2 Flow Rate FiO2 07/06/19 06:00 96.9 79 17 152/90 (110) 98 07/04/19 00:26 Room Air I&O- Last 24 Hours up to 6 AM 07/06/19 06:00 Intake Total 1875 ml Output Total 0 ml Balance 1875 ml BRAYDON GOMEZ DO Jul 06, 2019 15:52
[2019-07-06] MEDS: POTASSIUM CHLORIDE 10 MEQ SR TABLET PO SCH (18:46)
[2019-07-06] MEDS: ONDANSETRON 4MG/2ML VIAL (J2405) IV PRN (21:54)
[2019-07-06 22:00] VITALS: BP 151/66
[2019-07-07 06:00] VITALS: BP 133/71
[2019-07-07 06:42] LABS: HEMATOCRIT 23.2 % (36.0-47.0); HEMOGLOBIN 7.6 g/dl (12.0-15.5); MEAN CORPUSCULAR HEMOGLOBIN 29.7 pg (27.0-33.0); MEAN CORPUSCULAR HGB CONC 32.8 g/dl (32.0-36.5); MEAN CORPUSCULAR VOLUME 90.6 fl (80.0-96.0); PLATELET COUNT, AUTOMATED 265 10^3/uL (150-450); RED BLOOD COUNT 2.56 10^6/uL (4.00-5.40); WHITE BLOOD COUNT 10.1 10^3/uL (4.0-10.0)
[2019-07-07 07:13] LABS: BLOOD UREA NITROGEN 4 MG/DL (7-18); CALCIUM LEVEL 7.9 MG/DL (8.8-10.2); CARBON DIOXIDE LEVEL 21 MEQ/L (21-32); CHLORIDE LEVEL 117 MEQ/L (98-107); CREATININE FOR GFR 0.76 MG/DL (0.55-1.30); GLOMERULAR FILTRATION RATE > 60.0 (>32); GLUCOSE, FASTING 74 MG/DL (70-100); MAGNESIUM LEVEL 1.5 MG/DL (1.8-2.4); POTASSIUM SERUM 3.4 MEQ/L (3.5-5.1); SODIUM LEVEL 149 MEQ/L (136-145)
[2019-07-07] MEDS ORDERED: NS 1,000 ML IV SCH (07:28)
[2019-07-07 07:45] VITALS: BP 138/70
[2019-07-07] MEDS ORDERED: MAG SULF 1GM/100ML (MAG RUN) 1 GM in IV 1 EA IV ONE (07:45)
[2019-07-07] MEDS: POTASSIUM CHLORIDE 10 MEQ SR TABLET PO SCH (08:08)
[2019-07-07] MEDS: MAGNESIUM CHLORIDE 64 MG TABCR (SLO MAG) PO SCH (08:08)
[2019-07-07] MEDS: AUGMENTIN 875 MG TAB PO SCH ×2 (08:08→20:00)
[2019-07-07 14:00] VITALS: BP 138/72
--- NOTE | 2019-07-07 16:22 | IPNPDOC ---
Text Note Date of Service The patient was seen on 07/07/19. NOTE Subjective: Patient is alert, oriented. Patient denies any pain in her abdomen, fever chills, nausea, vomiting, shortness of breath or palpitations. Objective: General - NAD, sitting up in bed Eyes - PERRLA, EOM intact Neck - No noticeable or palpable swelling, redness or rash around throat or on face Lymph Nodes - No lymphadenopathy Cardiovascular - RRR no m/r/g, no JVD, no carotid bruits Lungs - Clear to auscultation, no use of accessory muscles, no crackles or whe ezes. Skin - No rashes, skin warm and dry, no erythematous areas Abdomen - Normal bowel sounds, abdomen soft and nontender Extremities - No edema, cyanosis or clubbing Musculo Skeletal - 5/5 strength, normal range of motion, no swollen or erythematous joints. Neurological Alert and oriented x 3, CN 2-12 grossly intact Assessment and plan Patient is 84 years old female with past medical history of dementia presented hospital with left lower abdominal pain and vomiting and generalized weakness. Imaging studies showed proximal sigmoid diverticulitis. Also patient was found to have interventional bleed s/p D&C on June 30. 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 Patient has continues mild intra vaginal bleed 1 unit of blood ordered I talked to Dr. Woodard who did D&C on June 30. She told me she received report from biopsy positive for leiomyosarcoma. She recommended consult from oncologist/senior it project manager. If pt continues to bleed she can be transferred to [facility]. If patient stable she can be discharged to care home and then transferred to [facility]. H&H every 6 hours Dementia - Supportive care; home med Electrolyte abnormalities magnesium replaced VS,Fishbone, I+O VS, Fishbone, I+O Laboratory Tests 07/07/19 06:22 Red Blood Count 2.56 L, Mean Corpuscular Volume 90.6, Mean Corpuscular Hemoglobin 29.7, Mean Corpuscular Hemoglobin Concent 32.8, Red Cell Distribution Width 14.4, Calcium Level 7.9 L Vital Signs Date Time Temp Pulse Resp B/P (MAP) Pulse Ox O2 Delivery O2 Flow Rate FiO2 07/07/19 14:00 97.6 76 17 138/72 (94) 98 07/04/19 00:26 Room Air I&O- Last 24 Hours up to 6 AM 07/07/19 06:00 Intake Total 2865 ml Output Total 250 ml Balance 2615 ml BRAYDON GOMEZ DO Jul 07, 2019 16:22
[2019-07-07 22:00] VITALS: BP 130/64
[2019-07-08] MEDS: NS 1,000 ML IV SCH (01:49)
[2019-07-08 06:00] VITALS: BP 144/71
[2019-07-08 06:38] LABS: HEMATOCRIT 26.7 % (36.0-47.0); MEAN CORPUSCULAR HEMOGLOBIN 29.5 pg (27.0-33.0); MEAN CORPUSCULAR HGB CONC 33.7 g/dl (32.0-36.5); MEAN CORPUSCULAR VOLUME 87.5 fl (80.0-96.0); PLATELET COUNT, AUTOMATED 293 10^3/uL (150-450); RED BLOOD COUNT 3.05 10^6/uL (4.00-5.40); WHITE BLOOD COUNT 10.1 10^3/uL (4.0-10.0)
[2019-07-08 07:08] LABS: BLOOD UREA NITROGEN 4 MG/DL (7-18); CALCIUM LEVEL 7.6 MG/DL (8.8-10.2); CARBON DIOXIDE LEVEL 23 MEQ/L (21-32); CHLORIDE LEVEL 114 MEQ/L (98-107); CREATININE FOR GFR 0.66 MG/DL (0.55-1.30); GLOMERULAR FILTRATION RATE > 60.0 (>32); GLUCOSE, FASTING 75 MG/DL (70-100); MAGNESIUM LEVEL 1.4 MG/DL (1.8-2.4); POTASSIUM SERUM 3.2 MEQ/L (3.5-5.1); SODIUM LEVEL 144 MEQ/L (136-145)
[2019-07-08] MEDS ORDERED: MAG SULF 1GM/100ML (MAG RUN) 1 GM in IV 1 EA IV ONE (08:00)
[2019-07-08] MEDS ORDERED: KCL 40MEQ in NS 1000ML 1,000 ML IV SCH (08:00)
[2019-07-08] MEDS: MAGNESIUM CHLORIDE 64 MG TABCR (SLO MAG) PO SCH ×2 (08:05→09:00)
[2019-07-08] MEDS: AUGMENTIN 875 MG TAB PO SCH ×2 (08:06→09:00)
[2019-07-08] MEDS: POTASSIUM CHLORIDE 10 MEQ SR TABLET PO SCH ×2 (08:06→09:00)
[2019-07-08] MEDS ORDERED: MAGN200T PO (08:55)
[2019-07-08] MEDS ORDERED: AMOX875T2 PO (08:55)
[2019-07-08] MEDS ORDERED: SERT-141 PO (08:55)
[2019-07-08] MEDS ORDERED: ACET1TAB55 PO (08:55)
--- NOTE | 2019-07-08 19:24 | DS.PDOC ---
Discharge Summary General Date of Admission Jul 03, 2019 at 23:41 Date of Discharge 07/08/19 Discharge Summary PROCEDURES PERFORMED DURING STAY: [None]. ADMITTING DIAGNOSES: Acute Sigmoid Diverticulitis Acute and Chronic Blood Loss Anemia due Uterine bleeding, Multiple Uterine Polyps leiomyosarcoma Dementia Electrolyte abnormalities DISCHARGE DIAGNOSES: Acute Sigmoid Diverticulitis Acute and Chronic Blood Loss Anemia due Uterine bleeding, Multiple Uterine Polyps leiomyosarcoma Dementia Electrolyte abnormalities COMPLICATIONS/CHIEF COMPLAINT: Diverticulitis Large Intestine. HISTORY OF PRESENT ILLNESS:Ms. Ni is an 84 years old woman with dementia who is oriented to place only. She did not know why she was in the hospital and denied any symptoms at all when I asked her. No family member available. Info obtained from ER MD. The patient was brought to ER for evaluation of left lower abdominal pain, nausea, vomiting and generalized weakness. Not sure if pt had diarrhea. CT abd shows proximal sigmoid diverticulitis, along with findings of recent D&C such as distended uterus and intra-uterine fluid and mass. Small amount of blood was noted in vaginal vault on ED MD examination. Hb is 9.5 is a change from 11.6 on 03/15/19. HOSPITAL COURSE: The following issue was addressed Acute Sigmoid Diverticulitis Patient received IV fluid, anti-emetic, antibiotics Continue Augmentin in the outpatient settings for 10 days Acute and Chronic Blood Loss Anemia due Uterine bleeding, Multiple Uterine Polyps Patient has continues mild intra vaginal bleed She received 1 unit of blood I talked to Dr. Woodard who did D&C on June 30. She told me she received report from biopsy positive for leiomyosarcoma. She recommended consult from oncologist/real estate coordinator. If pt continues to bleed she can be transferred to [facility]. If patient stable she can be [facility] and then transferred to [facility]. H&H every 6 hours Dementia - Supportive care; home med Electrolyte abnormalities magnesium replaced DISCHARGE MEDICATIONS: Please see below. ALLERGIES: Please see below. PHYSICAL EXAMINATION ON DISCHARGE: General Exam: Positive: Alert, Cooperative, No Acute Distress Eye Exam: Positive: PERRLA, Conjunctiva & lids normal ENT Exam: Positive: Atraumatic Neck Exam: Positive: Supple; Negative: JVD Chest Exam: Positive: Clear to auscultation, Normal air movement Heart Exam: Positive: Rate Normal, Normal S1, Normal S2; Negative: Murmurs Abdomen Exam: Positive: BS Hyperactive, Soft, Tenderness Extremity Exam: Positive: Normal pulses; Negative: Edema Skin Exam: Positive: Nl turgor and temperature; Negative: Rash, Breakdown Neuro Exam: Positive: Normal Speech, Strength at 5/5 X4 ext, Normal Tone Psych Exam: Positive: Mood NL, Other (oriented to palce only); Negative: Anxiety LABORATORY DATA: Please see below. IMAGING:PROCEDURE INFORMATION: Exam: CT Abdomen and Pelvis With Contrast Exam date and time: 07/03/2019 9:49 PM Clinical history: 84 years old, female; Abdominal pain; Generalized; Prior surgery; Surgery date: Post-operative (0-2 days); Surgery type: S/P d&c; Patient HX: HX diverticulitis; Additional info: Pain, S/P d TECHNIQUE: Imaging protocol: Computed tomography of the abdomen and pelvis with intravenous contrast. Radiation optimization: All CT scans at this facility use at least one of these dose optimization techniques: automated exposure control; mA and/or kV adjustment per patient size (includes targeted exams where dose is matched to clinical indication); or iterative reconstruction. Contrast material: ISOVUE 370; Contrast volume: 100 ml; Contrast route: IV; COMPARISON: CT ABD/PEL W/IV CONTRAST ONLY 03/15/2019 2:23 PM FINDINGS: Lungs: Bibasilar atelectasis. Liver: There is a diffuse decrease in hepatic parenchymal density, consistent with fatty infiltration. Gallbladder and bile ducts: There are gallstones present. No evidence of cholecystitis demonstrated. Pancreas: Normal. No ductal dilation. Spleen: Normal. No splenomegaly. Adrenals: Normal. No mass. Kidneys and ureters: Normal. No hydronephrosis. Stomach and bowel: Unremarkable. No obstruction. No mucosal thickening. Appendix: No evidence of appendicitis. Intraperitoneal space: There is a segment of acute inflammation in the proximal sigmoid colon and adjacent pericolonic fat without evidence of a drainable abscess or free air, consistent with acute diverticulitis. Vasculature: The aorta demonstrates moderate atherosclerotic calcification. Lymph nodes: Unremarkable. No enlarged lymph nodes. Bladder: Unremarkable as visualized. Reproductive: Gross widening of the endometrial cavity filled with fluid measures 3.5 cm in maximum width with a small locule of air and high density material demonstrated within the fluid as well, findings consistent with recent D&C. Infection to be excluded clinically. Bones/joints: Mild central spinal stenosis L3-4 and mild to moderate central spinal stenosis L4-5. Facet joint arthropathy L5-S1. Soft tissues: Unremarkable. IMPRESSION: 1. Abnormally widened endometrial cavity filled with fluid and gas locules and probable hemorrhagic products. Findings consistent with recent surgery clinical correlation to exclude infection suggested. Residual tumor not excluded. 2. There is a diffuse decrease in hepatic parenchymal density, consistent with fatty infiltration. 3. There are gallstones present. No evidence of cholecystitis demonstrated. 4. There is a segment of acute inflammation in the proximal sigmoid colon and adjacent pericolonic fat without evidence of a drainable abscess or free air, consistent with acute diverticulitis. Electronically signed by: Burton Garcia On 07/03/2019 22:23:32 PM DD: BURTON GARCIA MD 07/03/[id number] DT: BILL 07/03/192222 DS: YASIR 07/03/192222 [~ rep ct labl] PROGNOSIS: Favorable ACTIVITY: As tolerated DIET: Regular DISCHARGE PLAN: [facility] DISPOSITION: [facility]. DISCHARGE INSTRUCTIONS: Patient will need follow-up with oncologist in [facility] TO FOLLOWUP ON ON OUTPATIENT: Follow-up with explosive ordnance manager and oncologist DISCHARGE CONDITION: Stable. TIME SPENT ON DISCHARGE: Greater than 20 minutes. Vital Signs/I&Os Vital Signs Date Time Temp Pulse Resp B/P (MAP) Pulse Ox O2 Delivery O2 Flow Rate FiO2 07/08/19 06:00 98.0 78 18 144/71 (95) 95 07/04/19 00:26 Room Air I&O- Last 24 Hours up to 6 AM 07/08/19 05:59 Intake Total 1120 ml Output Total 1550 ml Balance -430 ml Laboratory Data Labs 24H Laboratory Tests 2 07/08/19 06:03: Nucleated Red Blood Cells % (auto) 0.0, Anion Gap 7L, Glomerular Filtration Rate > 60.0, Blood Urea Nitrogen 4L, Creatinine 0.66, Sodium Level 144, Potassium Level 3.2L, Chloride Level 114H, Carbon Dioxide Level 23, Calcium Level 7.6L, Magnesium Level 1.4L CBC/BMP Laboratory Tests 07/08/19 06:03 Red Blood Count 3.05 L, Mean Corpuscular Volume 87.5, Mean Corpuscular Hemoglobin 29.5, Mean Corpuscular Hemoglobin Concent 33.7, Red Cell Distribution Width 14.6 H, Calcium Level 7.6 L Microbiology Microbiology 9/24/19 Gastrointestinal Tract Panel (PCR) - Final, Complete 07/03/19 Urine Culture - Final, Complete Discharge Medications Scheduled Amoxicillin/Potassium Clav (Amox-Clav 875-125 mg Tablet) 1 Each Tablet, 875 MG PO BID Donepezil HCl (Donepezil HCl) 10 Mg Tablet, 10 MG PO DAILY, (Reported) Gabapentin (Gabapentin) 300 Mg Capsule, 300 MG PO QPM, (Reported) Magnesium (Magnesium) 200 Mg Tablet, 200 MG PO BID Metoprolol Tartrate (Metoprolol Tartrate) 25 Mg Tablet, 25 MG PO BID, (Reported) [place]-3 Fatty Acids/Fish Oil (Fish Oil 1,000 mg Capsule) 1 Each Capsule, 1,000 MG PO DAILY, (Reported) Sertraline Hcl (Sertraline HCl) 50 Mg Tablet, 50 MG PO DAILY Scheduled PRN Acetaminophen (Acetaminophen) 325 Mg Tablet, 650 MG PO Q4H PRN for PAIN OR FEVER Tramadol HCl (Tramadol HCl) 50 Mg Tablet, 50 MG PO BID PRN for pain, (Reported) Allergies Coded Allergies: No Known Allergies (Unverified , 07/03/19) BRAYDON GOMEZ DO Jul 08, 2019 19:23
== END 2019-07-08 11:23 | DRG 392 ==
LOC: M ED 20:22 → M ED INP 23:41 → M MSPAV 07-04 00:35
PROVIDERS: ADMIT Internal Medicine; ATTEND Internal Medicine
DX: K57.32 Diverticulitis of large intestine without perforation or abscess without bleeding (principal); D62 Acute posthemorrhagic anemia; N84.0 Polyp of corpus uteri; F03.90 Unspecified dementia, unspecified severity, without behavioral disturbance, psychotic disturbance, mood disturbance, and anxiety; E83.42 Hypomagnesemia; R53.1 Weakness; C55 Malignant neoplasm of uterus, part unspecified; Z79.899 Other long term (current) drug therapy

== ENCOUNTER → 2019-07-12 | Outpatient (REF) ==
[~2019-07-12] MED LIST changes: +ACET1TAB55 PO; +AMOX875T2 PO; +MAGN200T PO; +SERT-141 PO
[2019-07-12 09:25] LABS: HEMATOCRIT 28.9 % (36.0-47.0); HEMOGLOBIN 9.5 g/dl (12.0-15.5); MEAN CORPUSCULAR HEMOGLOBIN 30.1 pg (27.0-33.0); MEAN CORPUSCULAR HGB CONC 32.9 g/dl (32.0-36.5); MEAN CORPUSCULAR VOLUME 91.5 fl (80.0-96.0); PLATELET COUNT, AUTOMATED 361 10^3/uL (150-450); RED BLOOD COUNT 3.16 10^6/uL (4.00-5.40); WHITE BLOOD COUNT 10.4 10^3/uL (4.0-10.0)
[2019-07-12 09:46] LABS: BLOOD UREA NITROGEN 10 MG/DL (7-18); CALCIUM LEVEL 8.6 MG/DL (8.8-10.2); CARBON DIOXIDE LEVEL 25 MEQ/L (21-32); CHLORIDE LEVEL 112 MEQ/L (98-107); CREATININE FOR GFR 0.84 MG/DL (0.55-1.30); GLOMERULAR FILTRATION RATE > 60.0 (>32); GLUCOSE, FASTING 101 MG/DL (70-100); MAGNESIUM LEVEL 1.7 MG/DL (1.8-2.4); POTASSIUM SERUM 3.3 MEQ/L (3.5-5.1); SODIUM LEVEL 145 MEQ/L (136-145)
== END ==
PROVIDERS: ATTEND Internal Medicine
DX: K57.30 Diverticulosis of large intestine without perforation or abscess without bleeding (principal)

== ENCOUNTER → 2019-07-25 | Outpatient (CLI) | payer MEDICARE, OTHER ==
[~2019-07-25] MED LIST changes: +ISOVUE-370 76% 100ML VIAL (Q9967) As Ordered ONE
--- NOTE | 2019-07-25 18:24 | REP ---
REASON: History of sarcoma. No prior chest CT's for comparison. CONTRAST: 100 mL Isovue-370. Small areas of low density are seen scattered throughout the thyroid gland likely colloid cysts. There is no mediastinal or hilar adenopathy. Non-enlarged lymph nodes are seen in the mediastinum and subcardinal regions. There are no pleural or pericardial effusions. The imaged upper abdomen is unchanged from abdominal and pelvic CT scanning of 07/03/2019. Note is again of cholelithiasis. Bone window technique throughout the exam shows the osseous structures to be within normal limits for the patient's age of 84 years. Evaluation of the lung collier shows respiratory motion artifact obscuring the fine detail. There is evidence of parenchymal fibrosis with scattered curvilinear densities and opacities along with a few scattered ground glass opacities. These could obscure a significant nodule. No safia masses or areas of spiculation are identified. There is evidence of mild cylindrical bronchiectasis but this is obscured by respiratory motion artifact particularly in the lung bases. IMPRESSION:There is no evidence of acute intrathoracic disease. 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 Thyroid ultrasonography is recommended for further evaluation. There are parenchymal fibrotic changes and limitations as described above. Other findings as described above. Electronically Signed by Onur Choi DO 07/26/2019 02:14 P
== END ==
LOC: M RAD 15:07
PROVIDERS: ATTEND Nurse Practitioner Family
DX: C49.9 Malignant neoplasm of connective and soft tissue, unspecified (principal)
CPT/HCPCS: 71260; Q9967

== ENCOUNTER → 2019-07-31 | Outpatient (REF) | payer MEDICARE, OTHER ==
[~2019-07-31] MED LIST changes: -ISOVUE-370 76% 100ML VIAL (Q9967) As Ordered ONE
[2019-07-31 09:35] LABS: HEMATOCRIT 30.4 % (36.0-47.0); HEMOGLOBIN 9.7 g/dl (12.0-15.5); MEAN CORPUSCULAR HEMOGLOBIN 29.8 pg (27.0-33.0); MEAN CORPUSCULAR HGB CONC 31.9 g/dl (32.0-36.5); MEAN CORPUSCULAR VOLUME 93.5 fl (80.0-96.0); PLATELET COUNT, AUTOMATED 345 10^3/uL (150-450); RED BLOOD COUNT 3.25 10^6/uL (4.00-5.40); WHITE BLOOD COUNT 26.8 10^3/uL (4.0-10.0)
[2019-07-31 09:56] LABS: CALCIUM LEVEL 8.8 MG/DL (8.8-10.2); CREATININE FOR GFR 0.98 MG/DL (0.55-1.30); GLOMERULAR FILTRATION RATE 57.7 (>32); POTASSIUM SERUM 3.8 MEQ/L (3.5-5.1)
== END ==
PROVIDERS: ATTEND Internal Medicine
DX: I10 Essential (primary) hypertension (principal)

== ENCOUNTER → 2019-08-03 | Outpatient (REF) ==
[2019-08-03 08:39] LABS: HEMOGLOBIN 9.5 g/dl (12.0-15.5); MEAN CORPUSCULAR HEMOGLOBIN 28.7 pg (27.0-33.0); MEAN CORPUSCULAR HGB CONC 30.6 g/dl (32.0-36.5); MEAN CORPUSCULAR VOLUME 93.7 fl (80.0-96.0); PLATELET COUNT, AUTOMATED 380 10^3/uL (150-450); RED BLOOD COUNT 3.31 10^6/uL (4.00-5.40)
== END ==
PROVIDERS: ATTEND Internal Medicine
DX: Z98.890 Other specified postprocedural states (principal); Z79.899 Other long term (current) drug therapy